=== PATIENT | male | born 1995 | race Caucasian/White ===

== ENCOUNTER 2016-11-04 19:32 | Emergency (ER) | payer OTHER ==
[2016-11-04 19:32] VITALS: BMI 20.9
[2016-11-04 20:45] LABS: URINE BILIRUBIN NEGATIVE (NEGATIVE); URINE BLOOD NEGATIVE (NEGATIVE); URINE COLOR Yellow (YELLOW); URINE GLUCOSE (UA) NORMAL (Normal); URINE KETONE NEGATIVE (NEGATIVE); URINE LEUKOCYTE ESTERASE NEG Leu/uL (Negative); URINE PROTEIN NEGATIVE (NEGATIVE); URINE UROBILINOGEN NORMAL mg/dL (0.2-1.0)
[2016-11-04] MEDS ORDERED: Alum-Mag Hydrox-Simethicone Susp (30 mL) PO STA (21:10)
[2016-11-04] MEDS ORDERED: Alum-Mag Hydrox-Simethicone Susp (30 mL) ONE (21:19)
--- NOTE | 2016-11-04 21:58 | C.PDOC ---
Time Seen by Provider: 11/04/16 20:56 Chief Complaint (Nursing): Abdominal Pain History Per: Patient Onset/Duration Of Symptoms: Hrs (this afternoon) Current Symptoms Are (Timing): Still Present Severity: Moderate Location Of Pain/Discomfort: Diffuse Quality Of Discomfort: Unable To Describe, "Pain" Alleviating Factors: None Additional History Per: Prior Records Past Medical History Reviewed: Historical Data, Nursing Documentation, Vital Signs Vital Signs: Last Vital Signs Temp 98.2 F 11/04/16 19:43 Pulse 90 11/04/16 19:43 Resp 14 11/04/16 19:43 BP 128/87 11/04/16 20:49 Pulse Ox 98 11/04/16 19:43 - Medical History PMH: HTN (?) Surgical History: Tonsillectomy Family History: States: Unknown Family Hx - Social History Hx Alcohol Use: Yes Hx Substance Use: No - Immunization History Hx Tetanus Toxoid Vaccination: No Hx Influenza Vaccination: No Hx Pneumococcal Vaccination: No Review Of Systems Except As Marked, All Systems Reviewed And Found Negative. Constitutional: Negative for: Fever, Weakness Cardiovascular: Negative for: Chest Pain Respiratory: Negative for: Shortness of Breath Gastrointestinal: Positive for: Abdominal Pain. Negative for: Vomiting, Diarrhea Genitourinary: Negative for: Dysuria Musculoskeletal: Negative for: Neck Pain, Back Pain Skin: Negative for: Rash Neurological: Negative for: Weakness, Numbness, Seizures, Altered Mental Status Physical Exam - Physical Exam Appears: Non-toxic, No Acute Distress Skin: Normal Color, Warm, Dry, No Rash Head: Atraumatic, Normacephalic Eye(s): bilateral: Normal Inspection, PERRL, EOMI Neck: Normal ROM, Supple Cardiovascular: Rhythm Regular Respiratory: Normal Breath Sounds, No Accessory Muscle Use Gastrointestinal/Abdominal: Bowel Sounds (wnl), Soft, No Tenderness Back: No CVA Tenderness Extremity: Normal ROM Neurological/Psych: Oriented x3, Normal Motor, Normal Sensation ED Course And Treatment O2 Sat by Pulse Oximetry: 98 Pulse Ox Interpretation: Normal - Other Rad KUB X-Ray: Interpreted by Me, Viewed By Me Interpretation: NSBGP Progress Note: Pt spontaneously started feeling better. He wants to go home now. Reassessment Condition: Improved Disposition Counseled Patient/Family Regarding: Studies Performed, Diagnosis, Need For Followup, Rx Given - Disposition Referrals: Vijay Banks DO [Staff Provider] - Disposition: HOME/ ROUTINE Disposition Time: 21:58 Condition: IMPROVED Additional Instructions: Follow up with your doctor. Return to the ER if you develop fever, vomiting, pain that moves to right lower side, worsening of symptoms or if you have any other concerns. Prescriptions: Polyethylene Glycol 3350 [Miralax] 17 gm PO DAILY #7 packet Instructions: Acute Abdominal Pain (ED) - Clinical Impression Clinical Impression: Abdominal pain
[2016-11-04 22:06] VITALS: BP 135/88; PULSE 57; RESP 18; TEMP 98.1; O2SAT 100
--- NOTE | 2016-11-05 10:44 | RAD ---
HISTORY: abd pain COMPARISON: No prior. FINDINGS: BOWEL: Normal. No obstruction. No free air. BONES: Normal. OTHER FINDINGS: None. IMPRESSION: Neck or significant
== END 2016-11-04 22:06 | disposition home or self-care (01) ==
LOC: C.ER 19:32
DX: R10.9 Unspecified abdominal pain (principal)